=== PATIENT | male | born 1950 | race Caucasian/White ===

== ENCOUNTER 2020-03-14 19:42 | Emergency (ER) | payer OTHER ==
[~2020-03-14] VITALS: Ht 167.6 cm; Wt 66.7 kg
[2020-03-14] MEDS ORDERED: IBUPROFEN800 MG (19:50)
[2020-03-14] MEDS ORDERED: VOLTAREN100 GM (19:50)
[2020-03-14] MEDS ORDERED: XYLOCAINE JELLY 221 (19:50)
[2020-03-14] MEDS ORDERED: TYLENOL ARTHRI650 MG (19:50)
== END 2020-03-14 22:24 | disposition home or self-care (01) ==
LOC: ER 19:42
DX: M54.16 Radiculopathy, lumbar region (principal); M54.5 Low back pain; M54.2 Cervicalgia

== ENCOUNTER 2020-04-19 19:47 | Emergency (ER) | payer OTHER ==
[~2020-04-19] VITALS: Ht 165.1 cm; Wt 65.8 kg
[~2020-04-19 19:47] MED LIST: IBUPROFEN800 MG; TYLENOL ARTHRI650 MG; VOLTAREN100 GM; XYLOCAINE JELLY 221
[2020-04-19] MEDS ORDERED: MONTELUKAST SOD10 MG PO (20:15)
[2020-04-19] MEDS ORDERED: GABAPENTIN400 MG PO (20:15)
[2020-04-19] MEDS ORDERED: IVERMECTIN3 MG PO (21:04)
[2020-04-19] MEDS ORDERED: PERMETHRIN60 GM TOP (21:04)
== END 2020-04-19 21:49 | disposition home or self-care (01) ==
LOC: ER 19:47
DX: B86 Scabies (principal); Z03.818 Encounter for observation for suspected exposure to other biological agents ruled out

== ENCOUNTER 2020-08-20 08:24 | Outpatient (CLI) | payer OTHER ==
[~2020-08-20 08:24] MED LIST changes: +GABAPENTIN400 MG PO; +IVERMECTIN3 MG PO; +MONTELUKAST SOD10 MG PO; +PERMETHRIN60 GM TOP
== END 2020-08-20 08:41 | disposition home or self-care (01) ==
LOC: LAB 08:24
PROVIDERS: ATTEND Orthopaedic Surgery Orthopaedic Surgery of the Spine
DX: D64.89 Other specified anemias (principal); D68.8 Other specified coagulation defects; E03.8 Other specified hypothyroidism; R07.89 Other chest pain

== ENCOUNTER 2020-09-03 05:00 | Inpatient (IN) | payer OTHER ==
[~2020-09-03] VITALS: Ht 170.2 cm; Wt 68.0 kg
[2020-09-03] MEDS ORDERED: NEURONTIN800 MG PO (09:56)
[2020-09-03] MEDS ORDERED: PERCOCET 5-3251 EACH PO (09:56)
[2020-09-03] MEDS ORDERED: AMOX-CLAV 875-1 EACH PO (09:56)
[2020-09-03] MEDS ORDERED: COLACE100 MG PO (09:56)
[2020-09-03] MEDS ORDERED: DIAZEPAM5 MG PO (09:56)
[2020-09-03] MEDS ORDERED: MEDROLPACK PO (09:56)
[2020-09-03] MEDS ORDERED: ZOFRAN4 MG PO (09:57)
== END 2020-09-04 18:44 | DRG 458 ==
LOC: CIR.AMB 05:00 → SURH 13:13 → O/R 13:13 → SURH 13:15
PROVIDERS: ADMIT Orthopaedic Surgery Orthopaedic Surgery of the Spine; ATTEND Orthopaedic Surgery Orthopaedic Surgery of the Spine
PROC: 0ST20ZZ Resection of Lumbar Vertebral Disc, Open Approach (ICD-10-PCS; 2020-09-03)
PROC: 0QU307Z Supplement Left Pelvic Bone with Autologous Tissue Substitute, Open Approach (ICD-10-PCS; 2020-09-03)
PROC: 0SG10A0 Fusion of 2 or more Lumbar Vertebral Joints with Interbody Fusion Device, Anterior Approach, Anterior Column, Open Approach (ICD-10-PCS; principal; 2020-09-03 10:15)
DX: M54.16 Radiculopathy, lumbar region (principal); M41.56 Other secondary scoliosis, lumbar region

== ENCOUNTER 2020-12-07 13:58 | Emergency (ER) | payer OTHER ==
[~2020-12-07] VITALS: Ht 167.6 cm; Wt 68.9 kg
[~2020-12-07 13:58] MED LIST changes: +AMOX-CLAV 875-1 EACH PO; +COLACE100 MG PO; +DIAZEPAM5 MG PO; +MEDROLPACK PO; +NEURONTIN800 MG PO; +PERCOCET 5-3251 EACH PO; +ZOFRAN4 MG PO
[2020-12-07] MEDS ORDERED: ADULT LOW DOSE81 M1 (14:31)
[2020-12-07] MEDS ORDERED: MELATONIN1 M1 (14:31)
[2020-12-07] MEDS ORDERED: DICLOFENAC SODI75 MG PO (16:24)
== END 2020-12-07 18:28 | disposition home or self-care (01) ==
LOC: ER 13:58
DX: M25.511 Pain in right shoulder (principal)

== ENCOUNTER 2021-06-09 10:06 | Inpatient (IN) | payer OTHER ==
[~2021-06-09] VITALS: Ht 167.6 cm; Wt 68.0 kg
[~2021-06-09 10:06] MED LIST changes: +ADULT LOW DOSE81 M1; +DICLOFENAC SODI75 MG PO; +MELATONIN1 M1
[2021-06-09] MEDS ORDERED: TAMS0.4C (11:05)
--- NOTE | 2021-06-09 11:09 | NUR ---
SE NRECIBE PACIENTE ALERTA Y ORIENTADO X3 QUIEN REFIERE QING TOMADO CYSTEX Y AHORA TIENE SINTOMAS DE HEMATURIA,DIARREA,FIEBRE Y ESCALOFRIOS HACE DOS RICCI.SE MONITOREAN LOS SV TEMPERATURA EN 100.6. SE UBICA EN DIANA DE ESPERA.
--- NOTE | 2021-06-09 13:02 | NUR ---
PACIENTE EVALUADO POR DR SCHMITT AMANDA QUIEN [place] MED[place]. SE ORIENTA A PACIENTE SOBR EL MISMO Y REFIERE ENTENDER. SE LE PUSHPA MUESTRAS DE LAB UTILIZANDO MEDIAS ASEPTICAS.
[2021-06-10] MEDS ORDERED: TOVIAZ8 MG (10:06)
[2021-06-10] MEDS ORDERED: UROXATRAL10 MG (10:06)
[2021-06-10] MEDS ORDERED: LATANOPROST2.5 ML (10:06)
[2021-06-10] MEDS ORDERED: MONTELUKAST SOD10 MG (10:06)
[2021-06-10] MEDS ORDERED: DIAZEPAM5 MG (10:06)
[2021-06-13] MEDS ORDERED: CIPRO500 MG PO (12:42)
[2021-06-13] MEDS ORDERED: PHENERGAN25 MG PO (12:43)
[2021-06-13] MEDS ORDERED: PEPCID AC20 MG PO (12:44)
[2021-06-13] MEDS ORDERED: LIALDA1.2 GM PO (12:45)
[2021-06-13] MEDS ORDERED: METRONIDAZOLE500 MG PO (12:46)
[2021-06-13] MEDS ORDERED: INTESTINEX680 M1 PO (12:47)
== END 2021-06-13 13:44 | disposition home or self-care (01) | DRG 392 ==
LOC: ER 10:06 → SEC-K 19:06 → SURH 19:06
PROVIDERS: ADMIT Internal Medicine; ATTEND Internal Medicine
PROC: BW21YZZ Computerized Tomography (CT Scan) of Abdomen and Pelvis using Other Contrast (ICD-10-PCS; principal; 2021-06-10)
DX: K52.89 Other specified noninfective gastroenteritis and colitis (principal); K62.5 Hemorrhage of anus and rectum; D72.828 Other elevated white blood cell count; Z98.1 Arthrodesis status; Z20.822 Contact with and (suspected) exposure to COVID-19

== ENCOUNTER 2022-11-28 08:00 | Inpatient (IN) | payer OTHER ==
[~2022-11-28] VITALS: Ht 167.6 cm; Wt 71.7 kg
[~2022-11-28 08:00] MED LIST changes: +CIPRO500 MG PO; +DIAZEPAM5 MG; +INTESTINEX680 M1 PO; +LATANOPROST2.5 ML; +LIALDA1.2 GM PO; +METRONIDAZOLE500 MG PO; +MONTELUKAST SOD10 MG; +PEPCID AC20 MG PO; +PHENERGAN25 MG PO; +TAMS0.4C; +TOVIAZ8 MG; +UROXATRAL10 MG
[2022-12-01] MEDS ORDERED: SERTRALINE HCL25 MG (13:16)
[2022-12-01] MEDS ORDERED: MONTELUKAST SOD10 MG (13:16)
[2022-12-01] MEDS ORDERED: ZOFRAN8 MG PO (13:53)
[2022-12-01] MEDS ORDERED: PERCOCET 5-3251 EACH PO (13:53)
[2022-12-01] MEDS ORDERED: MEDROLPACK PO (13:54)
[2022-12-01] MEDS ORDERED: COLACE100 MG PO (13:54)
[2022-12-01] MEDS ORDERED: AMOX-CLAV 875-1 EACH PO (13:54)
[2022-12-01] MEDS ORDERED: NEURONTIN800 MG PO (13:55)
== END 2022-12-03 09:04 | disposition home or self-care (01) | DRG 454 ==
LOC: SURH 12-01 08:00 → O/R 12-01 10:00 → PED 12-01 20:02
PROVIDERS: ADMIT Orthopaedic Surgery Orthopaedic Surgery of the Spine; ATTEND Orthopaedic Surgery Orthopaedic Surgery of the Spine
PROC: 0SG3071 Fusion of Lumbosacral Joint with Autologous Tissue Substitute, Posterior Approach, Posterior Column, Open Approach (ICD-10-PCS; 2022-12-01)
PROC: 0ST40ZZ Resection of Lumbosacral Disc, Open Approach (ICD-10-PCS; 2022-12-01)
PROC: 0QB30ZZ Excision of Left Pelvic Bone, Open Approach (ICD-10-PCS; 2022-12-01)
PROC: 07DR0ZZ Extraction of Iliac Bone Marrow, Open Approach (ICD-10-PCS; 2022-12-01)
PROC: XRGD0R7 Fusion of Lumbosacral Joint using Custom-Made Anatomically Designed Interbody Fusion Device, Open Approach, New Technology Group 7 (ICD-10-PCS; principal; 2022-12-01 10:00)
DX: M54.17 Radiculopathy, lumbosacral region (principal); M96.0 Pseudarthrosis after fusion or arthrodesis; M48.07 Spinal stenosis, lumbosacral region; R26.89 Other abnormalities of gait and mobility; M43.17 Spondylolisthesis, lumbosacral region

== ENCOUNTER 2024-04-07 14:34 | Emergency (ER) | payer OTHER ==
[~2024-04-07] VITALS: Ht 165.1 cm; Wt 81.6 kg
[~2024-04-07 14:34] MED LIST changes: +SERTRALINE HCL25 MG; +ZOFRAN8 MG PO
[2024-04-07] MEDS ORDERED: AZITHROMYCIN 500 MG TABLET PO ONE (16:15)
[2024-04-07] MEDS ORDERED: ACETAMINOPHEN 500 MG GEL..CAP PO ONE (16:30)
[2024-04-07 17:25] LABS: HEMATOCRIT 36.5 % (39.0-48.0); MEAN CELL VOLUME 86.5 fL (80.0-100.00); MEAN CORPUSCULAR HEMOGLOBIN 28.4 pg (27.00-32.0); MEAN CORPUSCULAR HGB CONC 32.8 g/dl (32.0-36.0); PLATELET COUNT 231 K/uL (150-450); RED BLOOD COUNT 4.22 M/uL (4.00-6.00); RED CELL DISTRIBUTION WIDTH 15.9 % (11.5-14.5)
[2024-04-07 18:02] LABS: ALBUMIN 3.8 gm/dL (3.4-5.0); BILIRUBIN TOTAL 0.38 mg/dL (0.3-1.2); CALCIUM 9.1 mg/dL (8.5-10.1); CREATININE SERUM 1.28 mg/dL (0.70-1.30); GFR 55.24; GLOBULINA 3.5 G/DL (2.4-3.5); POTASSIUM 4.49 mEq/L (3.5-5.1); TOTAL PROTEIN 7.3 gm/dL (6.4-8.2)
[2024-04-07] MEDS ORDERED: ZITHROMAX500 MG PO (18:22)
[2024-04-07] MEDS ORDERED: TUSNEL LIQUID178 ML PO (18:22)
[2024-04-07 18:48] VITALS: BP 111/67; O2SAT 96
== END 2024-04-07 18:49 | disposition home or self-care (01) ==
LOC: ER 14:35
PROVIDERS: General Practice
DX: R53.81 Other malaise (principal); J06.9 Acute upper respiratory infection, unspecified; Z20.822 Contact with and (suspected) exposure to COVID-19

== ENCOUNTER 2024-06-21 05:57 | Day surgery (SDC) | payer OTHER ==
[2024-05-31 07:57] VITALS: BP 126/74
[2024-05-31 08:49] LABS: HEMATOCRIT 37.8 % (39.0-48.0); HEMOGLOBIN 12.4 g/dL (13-16.00); MEAN CELL VOLUME 88.1 fL (80.0-100.00); MEAN CORPUSCULAR HGB CONC 32.9 g/dl (32.0-36.0); PLATELET COUNT 183 K/uL (150-450); RED BLOOD COUNT 4.29 M/uL (4.00-6.00); RED CELL DISTRIBUTION WIDTH 16.4 % (11.5-14.5)
[2024-05-31 08:51] LABS: PH,URINE 6.5 (5.0-8.0); URINE APPEARANCE Clear; URINE BILIRRUBIN Negative (NEGATIVE); URINE BLOOD Negative; URINE COLOR Yellow; URINE GLUCOSE Negative (NEGATIVE); URINE KETONE Negative (NEGATIVE); URINE LEUKOCYTE Negative; URINE NITRATE Negative; URINE PROTEIN Negative (NEGATIVE); URINE UROBILINOGEN 0.2 E.U./dl
[2024-05-31 08:56] LABS: URINE BACTERIA 8.5 uL (0.0-1933); URINE RBC 41.8 uL (0.0-20.8)
[2024-05-31 09:08] LABS: URINE CAST 0.14 uL (0.0-1.40)
[2024-05-31 09:10] LABS: INR 1.08; PARTIAL THROMBOPLASTIN TIME 26.5 SECONDS (22.0-34.0); PROTHROMBIN TIME 11.7 SECONDS (9.0-11.5)
[2024-05-31 09:37] LABS: BILIRUBIN TOTAL 0.45 mg/dL (0.3-1.2); CALCIUM 9.1 mg/dL (8.5-10.1); CREATININE SERUM 1.14 mg/dL (0.70-1.30); GFR 63.14; GLOBULINA 3.1 G/DL (2.4-3.5); POTASSIUM 4.34 mEq/L (3.5-5.1); TOTAL PROTEIN 7.1 gm/dL (6.4-8.2)
[~2024-06-21] VITALS: Ht 170.2 cm; Wt 72.6 kg
[~2024-06-21 05:57] MED LIST changes: +EXCEDRIN EXTRA1 EAC2 PO; +TUSNEL LIQUID178 ML PO; +TYLENOL EXTRA500 MG PO; +ZITHROMAX500 MG PO
[2024-06-21] MEDS ORDERED: CEFAZOLIN SODIUM 1,000 MG VIAL ONE (07:10)
[2024-06-21] MEDS ORDERED: SUGAMMADEX SODIUM 200 MG/2 ML VIAL IV ONE (08:51)
[2024-06-21] MEDS ORDERED: MORPHINE SULFATE 4 MG/ML VIAL IV ONE ×2 (09:45→10:15)
== END 2024-06-21 11:25 | disposition home or self-care (01) ==
LOC: CIR.AMB 05:57
PROVIDERS: ATTEND Surgery
DX: K40.30 Unilateral inguinal hernia, with obstruction, without gangrene, not specified as recurrent (principal)
CPT/HCPCS: 49507; C1781